=== PATIENT | male | born 1960 | race American Indian/Alaskan Native ===

== ENCOUNTER 2020-02-06 13:37 | Emergency (ER) | payer SELFPAY ==
--- NOTE | 2020-02-06 14:41 | Emergency Department Report ---
HPI - General Chief Complaint: Neuro Symptoms/Deficit Time Seen by Provider: 02/06/20 14:20 - HPI HPI: 59-year-old male presents to the emergency department with a complaint of some weakness, numbness and dizziness. The patient woke up sometime between 3 and 4 AM this morning and wanted to go to the bathroom. At that time he says he had left arm and leg numbness and was unable to move his left side for about 10 minutes. He then was able to get up and go to the bathroom but still had the left-sided numbness. At that time he began having vertigo-like dizziness where the room was spinning. He was able to get back to the bed where he says that he and his started "googling symptoms." At first he was going to wait until tomorrow to come to the emergency department and be seen but changed his mind. Currently the patient complains of some paresthesias in the right hand and arm. He denies any headache, vision change, slurred speech. No past medical history. Denies any tobacco or illicit drug use. He has not taken anything for symptoms prior to presentation today. ED Past Medical Hx - Past Medical History Previous Medical History?: No - Surgical History Past Surgical History?: No - Social History Smoking Status: Never Smoker Substance Use Type: None ED Review of Systems ROS: Stated complaint: LT SIDED NUMBNESS TINGLING FINGERS Other details as noted in HPI Comment: All other systems reviewed and negative Constitutional: denies: chills, fever Eyes: denies: eye pain, vision change ENT: denies: ear pain, throat pain Respiratory: denies: cough, shortness of breath Cardiovascular: denies: chest pain, palpitations Gastrointestinal: denies: abdominal pain, vomiting Genitourinary: denies: dysuria, discharge Musculoskeletal: denies: back pain, arthralgia Skin: denies: rash, lesions Neurological: weakness, numbness, paresthesias, vertigo. denies: headache Physical Exam - Physical Exam Vital Signs: Vital Signs 02/06/20 13:45 Temperature 98.4 F Pulse Rate 76 Respiratory 20 Rate Blood Pressure 123/77 O2 Sat by Pulse 98 Oximetry Physical Exam: GENERAL: The patient is well-developed well-nourished. HENT: Normocephalic. Atraumatic. Patient has moist mucous membranes. EYES: Extraocular motions are intact. Pupils equal reactive to light bilaterally. No nystagmus. NECK: Supple. Trachea is midline. CHEST/LUNGS: Clear to auscultation. There is no respiratory distress noted. HEART/CARDIOVASCULAR: Regular. There is no tachycardia. There is no murmur. ABDOMEN: Abdomen is soft, nontender. Patient has normal bowel sounds. There is no abdominal distention. SKIN: Skin is warm and dry. NEURO: The patient is awake, alert, and oriented. The patient is cooperative. Patient has subjective decrease sensation to the right arm and right leg when compared to the left. No facial asymmetry. No pronator drift. Normal speech. MUSCULOSKELETAL: There is no tenderness or deformity. There is no limitation range of motion. ED Course Vital Signs 02/06/20 13:45 Temperature 98.4 F Pulse Rate 76 Respiratory 20 Rate Blood Pressure 123/77 O2 Sat by Pulse 98 Oximetry ED Medical Decision Making - Lab Data Result diagrams: 02/06/20 14:40 02/06/20 14:40 - EKG Data -: EKG Interpreted by Nv EKG shows normal: sinus rhythm, axis, intervals (Prolonged NM interval), QRS complexes, ST-T waves Rate: normal - EKG Data When compared to previous EKG there are: previous EKG unavailable Interpretation: other (Sinus rhythm, normal axis, prolonged NM interval, no ST elevation LA) - Radiology Data Radiology results: report reviewed CT head without contrast INDICATION : CVA. Left-handed hand numbness for the past week TECHNIQUE: Axial imaging performed from the skull apex through the skull base without the use of contrast. All CT scans at this location are performed using CT dose reduction for [employer] by means of automated exposure control. COMPARISON: None FINDINGS: Parenchyma: No acute intracranial hemorrhage or parenchymal abnormality. Ventricles: Ventricles are normal in size and appear symmetric. Soft tissues: Soft tissues including the orbits appear normal. Bones: No acute osseous abnormality. Sinuses: Sinuses and mastoid air cells are clear. IMPRESSION: No acute abnormality. CTA NECK WITH CONTRAST HISTORY: Stroke COMPARISON: None. TECHNIQUE: Routine CTA of the neck was performed. 3-D/MIP reformats were postprocessed. Percentage s tenosis is determined by direct quantitative measurements of diseased internal carotid artery diameter compared with normal distal internal carotid artery reference segments or by criteria similar to NASCET where applicable.All CT scans at this location are performed using CT dose reduction for ALARA by means of automated exposure control CONTRAST: 100 ml of Omnipaque 350 FINDINGS: Aortic arch: No significant abnormality. Cervical vertebral arteries: No significant abnormality. Common carotid arteries: No significant abnormality. Carotid bifurcations: Normal Cervical internal carotid arteries: No significant abnormality. Additional findings: None. IMPRESSION: 1. No significant abnormality. CTA HEAD WITH CONTRAST HISTORY: Stroke COMPARISON: None. TECHNIQUE: Routine non-contrast CT Head, CTA of the head and post-contrast CT Head are performed. 3-D/MIP reformats postprocessed. All CT scans at this location are performed using CT dose reduction for ALARA by means of automated exposure control CONTRAST: 100 ml of Omnipaque 350 FINDINGS: CTA Head: Intracranial vertebral arteries: No significant abnormality. Basilar artery: No significant abnormality. Posterior cerebral arteries: No significant abnormality. Both posterior communicating arteries are patent Intracranial internal carotid arteries: No significant abnormality. Anterior cerebral arteries: No significant abnormality. Middle cerebral arteries: No significant abnormality. Dural venous sinuses:Not optimally opacified. No significant abnormality. Additional findings: None. IMPRESSION: 1. No significant abnormality. - Medical Decision Making This patient presented to the emergency department with a complaint of having some left-sided weakness and numbness at about 4 AM this morning. This was then followed by some vertigo-like symptoms. The patient did not come into the emergency department until about 2 PM. At the time of that examination the patient no longer has any of the aforementioned symptoms and just complains of some mild numbness or paresthesias to the right hand and arm. Otherwise he does not have any slurred speech, facial asymmetry, pronator drift. Cranial nerves II through XII grossly intact. The patient had a CT scan of the head without contrast that does not show any acute process. He is outside of the TPA window. Given the previous symptoms, including the vertigo, patient had a CT angiography of the head and neck to look for any thrombus, occlusions, or any involvement of the posterior circulation system. However CT angiography studies were negative for any acute abnormalities. Patient's labs were mostly unremarkable including CBC, metabolic panel, troponin and TSH. Vital signs stable throughout his ED course. At the time of the patient's disposition the right-sided numbness had also resolved giving the patient a NIH stroke scale of 0. This all appears consistent with a possible TIA. I discussed with the patient my recommendation for admission for further TIA evaluation. However the patient is refusing admission at this time and wants to be worked up outpatient. I explained to the patient the risks of leaving at this time including reemergence of his symptoms, a CVA which could lead to permanent deficits, coma or even . The patient is awake, alert, oriented and has a normal decision- making capacity. Therefore, despite understanding the risks, patient still wants to leave and will sign out AGAINST MEDICAL ADVICE. Prior to leaving the patient was given a full dose aspirin. He was still given referrals for neurology. He also understands that he can return to the emergency department at any point if he changes his mind about further evaluation, has any worsening of his symptoms, or with any acute distress. Critical Care Time: No Critical care attestation.: If time is entered above; I have spent that time in minutes in the direct care of this critically ill patient, excluding procedure time. ED Disposition Clinical Impression: TIA (transient ischemic attack) Disposition: - LEFT AGAINST MED ADVICE Is pt being admited?: No Condition: Stable Instructions: Transient Ischemic Attack (ED) Additional Instructions: Please return to the emergency department immediately if you change your mind about admission and further evaluation, with any return of your symptoms, or with any acute distress. Take a baby aspirin once per day with food until follow-up with the neurologist. Please follow-up with your primary care physician in the next few days. I have given you a referral for a local neurologist, Dr. Mcdonough. Referrals: DERICK MCDONOUGH MD [Referring] - [facility] Forms: AMA Form Time of Disposition: 18:30 - Assessment Assessment Interval: Baseline - Level of Consciousness 1a. Level of Consciousness: alert/keenly responsive - LOC Questions 1b. LOC Questions: answers both correctly - LOC Command 1c. LOC Commands: performs tasks correctly - Best Gaze 2. Best Gaze: normal - Visual 3. Visual: no visual loss - Facial Palsy 4. Facial Palsy: normal symmetrical movement - Motor Arm 5a. Motor Arm Left: no drift 5b. Motor Arm Right: no drift - Motor Leg 6a. Motor Leg Left: no drift 6b. Motor Leg Right: no drift - Limb Ataxia 7. Limb Ataxia: absent - Sensory 8. Sensory: mild/moderate sensory loss - Best Language 9. Best Language: no aphasia - Dysarthria 10. Dysarthria: normal - Extinction and Inattention 11. Extinction/Inattention: no abnormality - Scoring Total Score: 1 Stroke Severity: Minor Stroke
[2020-02-06 14:53] LABS: Eosinophils # (Auto) 0.1 K/mm3 (0.0-0.4); Eosinophils % (Auto) 2.4 % (0.0-4.3); Monocytes # (Auto) 0.4 K/mm3 (0.0-0.8); Monocytes % (Auto) 6.7 % (0.0-7.3)
[2020-02-06 15:09] LABS: Basophils % (Auto) 0.7 % (0.0-1.8); Hematocrit 40.2 % (35.5-45.6); Hemoglobin 13.4 gm/dl (11.8-15.2); Lymphocytes # (Auto) 1.5 K/mm3 (1.2-5.4); Lymphocytes % (Auto) 25.5 % (13.4-35.0); Mean Corpuscular HGB Conc 33 % (32-34); Mean Corpuscular Volume 88 fl (84-94); Platelet Count 276 K/mm3 (140-440); Red Blood Count 4.58 M/mm3 (3.65-5.03); Red Cell Distribution Width 12.3 % (13.2-15.2)
[2020-02-06 15:12] LABS: INR 0.98 (0.87-1.13)
[2020-02-06 15:17] LABS: Alanine Aminotransferase 36 units/L (7-56); Albumin 4.6 g/dL (3.9-5); BUN/Creatinine Ratio 14; Blood Urea Nitrogen 14 mg/dL (9-20); Calcium 9.7 mg/dL (8.4-10.2); Hemolysis Index 10; Partial Thromboplastin Time 26.5 Sec. (24.2-36.6)
--- NOTE | 2020-02-06 15:41 | Cat Scan Report ---
CT head without contrast INDICATION : CVA. Left-handed hand numbness for the past week TECHNIQUE: Axial imaging performed from the skull apex through the skull base without the use of con trast. All CT scans at this location are performed using CT dose reduction for ALARA by means of aut omated exposure control. COMPARISON: None FINDINGS: Parenchyma: No acute intracranial hemorrhage or parenchymal abnormality. Ventricles: Ventricles are normal in size and appear symmetric. Soft tissues: Soft tissues including the orbits appear normal. Bones: No acute osseous abnormality. Sinuses: Sinuses and mastoid air cells are clear. IMPRESSION: No acute abnormality. Signer Name: Dmitri Key MD Signed: 02/06/2020 3:37 PM Workstation Name: [id number]
[2020-02-06 17:09] VITALS: BP 128/76
--- NOTE | 2020-02-06 17:53 | Cat Scan Report ---
CTA NECK WITH CONTRAST HISTORY: Stroke COMPARISON: None. TECHNIQUE: Routine CTA of the neck was performed. 3-D/MIP reformats were postprocessed. Percentage s tenosis is determined by direct quantitative measurements of diseased internal carotid artery diamete r compared with normal distal internal carotid artery reference segments or by criteria similar to NA SCET where applicable.All CT scans at this location are performed using CT dose reduction for ALARA b y means of automated exposure control CONTRAST: 100 ml of Omnipaque 350 FINDINGS: Aortic arch: No significant abnormality. Cervical vertebral arteries: No significant abnormality. Common carotid arteries: No significant abnormality. Carotid bifurcations: Normal Cervical internal carotid arteries: No significant abnormality. Additional findings: None. IMPRESSION: 1. No significant abnormality. Signer Name: Joe Griffin MD Signed: 02/06/2020 5:49 PM Workstation Name: [id number]
--- NOTE | 2020-02-06 17:57 | Cat Scan Report ---
CTA HEAD WITH CONTRAST HISTORY: Stroke COMPARISON: None. TECHNIQUE: Routine non-contrast CT Head, CTA of the head and post-contrast CT Head are performed. 3-D /MIP reformats postprocessed. All CT scans at this location are performed using CT dose reduction for ALARA by means of automated exposure control CONTRAST: 100 ml of Omnipaque 350 FINDINGS: CTA Head: Intracranial vertebral arteries: No significant abnormality. Basilar artery: No significant abnormality. Posterior cerebral arteries: No significant abnormality. Both posterior communicating arteries are pa tent Intracranial internal carotid arteries: No significant abnormality. Anterior cerebral arteries: No significant abnormality. Middle cerebral arteries: No significant abnormality. Dural venous sinuses:Not optimally opacified. No significant abnormality. Additional findings: None. IMPRESSION: 1. No significant abnormality. Signer Name: Joe Griffin MD Signed: 02/06/2020 5:52 PM Workstation Name: [id number]
[2020-02-06] MEDS ORDERED: ASPIRIN 81 MG TAB CHEW PO ONE (18:27)
== END 2020-02-06 18:49 | disposition left against medical advice (07) ==
LOC: ED 13:37
DX: G45.9 Transient cerebral ischemic attack, unspecified (principal)
CPT/HCPCS: 36415; 70450; 70496; 70498; 80053; 84443; 84484; 85025; 85610; 85730; 93005; 99284; Q9967